=== PATIENT | male | born 1970 | race Two or more races ===

== ENCOUNTER 2018-06-01 03:10 | Emergency (ER) | payer SELFPAY ==
[~2018-06-01] VITALS: Ht 172.7 cm; Wt 83.9 kg
[2018-06-01 03:25] VITALS: BP 161/98
[2018-06-01] MEDS ORDERED: Ketorolac 30mg Inj IV ONE (03:30)
--- NOTE | 2018-06-01 03:32 | Emergency Room Report ---
History of Present Illness General Chief Complaint: Abdominal Pain Source: Patient Present Illness HPI Is a 47-year-old male with no past medical history. He presents with chief complaint of abdominal pain with diarrhea this been ongoing for 2 months. He has weight loss. Said he lost about 7-10 pounds his last week. No nausea no vomiting. Pain is crampy and sharp in nature. Localized to the upper quadrants. No radiation. Diarrhea is watery and loose. On and off for a month. No fever or chills. No vomiting. He drinks about 6-7 beers a day. No other complaint. Never went to a doctor for this. Allergies: Coded Allergies: No Known Allergies (Unverified , 06/01/18) Patient History Past Medical History: none, see triage record, old chart reviewed Past Surgical History: none Pertinent Family History: none Social History: Reports: alcohol use Immunizations: other Reviewed Nursing Documentation: PMH: Agreed; PSxH: Agreed Nursing Documentation-PMH Past Medical History: No Stated History Review of Systems Eye: Denies: eye pain, blurred vision ENT: Denies: ear pain, nose congestion, throat swelling Respiratory: Denies: cough, shortness of breath Cardiovascular: Denies: chest pain, palpitations Gastrointestinal: Reports: abdominal pain, diarrhea; Denies: nausea, vomiting Musculoskeletal: Denies: back pain, joint pain Skin: Denies: rash Neurological: Denies: headache, numbness Endocrine: Denies: increased thirst, increased urine Hematologic/Lymphatic: Denies: easy bruising All Other Systems: negative except mentioned in HPI Physical Exam Vital Signs Date Time Temp Pulse Resp B/P (MAP) Pulse Ox O2 Delivery O2 Flow Rate FiO2 06/01/18 03:22 97.3 101 16 163/99 96 Room Air vitals with high blood pressure Sp02 EP Interpretation: reviewed, normal General Appearance: well appearing, no apparent distress, alert Head: normocephalic, atraumatic Eyes: bilateral eye PERRL, bilateral eye EOMI ENT: hearing grossly normal, normal pharynx Neck: full range of motion, supple, no meningismus Respiratory: chest non-tender, lungs clear, normal breath sounds Cardiovascular #1: regular rate, rhythm, no murmur Gastrointestinal: non tender, no mass, no organomegaly, no bruit, non-distended , abnormal bowel sounds - Hyperactive, other - ascites Musculoskeletal: back normal, gait/station normal, normal range of motion Psychiatric: mood/affect normal Skin: warm/dry Medical Decision Making Diagnostic Impression: Primary Impression: Abdominal pain Qualified Codes: R10.84 - Generalized abdominal pain Additional Impressions: Alcoholic cirrhosis of liver with ascites Diarrhea Qualified Codes: R19.7 - Diarrhea, unspecified ER Course Is with abdominal pain and diarrhea. CT scan showed evidence of liver disease with cirrhosis and ascites. I discussed this with patient with an solar sales specialist. Advised him to stop drinking. He will need follow-up with referral to see GI doctor. No evidence of spontaneous bacterial tinnitus. He does have moderate amount of bacteria in his urine. We'll treat with antibiotics. Lab Results Impression lab showed liver abnormality CT/MRI/US Diagnostic Results CT/MRI/US Diagnostic Results : Imaging Test Ordered: CT abdomen and pelvis Impression read by radiologist: CT ABDOMEN & PELVIS Without Contrast: Moderate abdominal and pelvic ascites. Cirrhosis of the liver. Splenomegaly. No bowel obstruction. No free air. Multiple splenic varices consistent with underlying portal venous hypertension. Mild chronic height loss of T12 and L1. Last Vital Signs Date Time Temp Pulse Resp B/P (MAP) Pulse Ox O2 Delivery O2 Flow Rate FiO2 06/01/18 03:22 97.3 101 16 163/99 96 Room Air Status: improved Disposition: HOME, SELF-CARE Condition: Stable Scripts Diphenoxylate Hcl/Atropine (LOMOTIL TABLET) 1 Each Tablet 1 TAB ORAL BID, #20 TAB 0 Refills Prov: Kenny Tanner MD 06/01/18 Additional Instructions: Stop drinking alcohol. This is damaging your liver. Follow-up with your doctor in 7 days. You will need a referral to see GI doctor. Return if symptom worsen. Kenny Tanner MD Jun 01, 2018 03:32
[2018-06-01 04:00] LABS: EOSINOPHILS % (AUTO) 1.9 % (0.0-3.0); HEMATOCRIT 52.4 % (42.0-52.0); LYMPHOCYTES % (AUTO) 22.1 % (20.0-45.0); MEAN CORPUSCULAR VOLUME 89 FL (80-99); MONOCYTES % (AUTO) 7.3 % (1.0-10.0); NEUTROPHILS % (AUTO) 67.7 % (45.0-75.0); PLATELET COUNT 181 K/UL (150-450); RED BLOOD COUNT 5.86 M/UL (4.70-6.10); RED CELL DISTRIBUTION WIDTH 11.3 % (11.6-14.8); WHITE BLOOD COUNT 6.3 K/UL (4.8-10.8)
[2018-06-01 04:03] LABS: APPEARANCE,URINE CLEAR; BILIRUBIN, URINE 1+ (NEGATIVE); GLUCOSE, URINE (UA) NEGATIVE (NEGATIVE); KETONES,URINE NEGATIVE (NEGATIVE); LEUKOCYTE ESTERASE ,URINE 1+ (NEGATIVE); NITRITE,URINE NEGATIVE (NEGATIVE); PH,URINE 6.5 (4.5-8.0); PROTEIN,URINE 4+ (NEGATIVE); UROBILINOGEN,URINE NORMAL MG/DL (0.0-1.0)
[2018-06-01 04:05] LABS: HEMOGLOBIN 18.9 G/DL (14.2-18.0)
[2018-06-01 04:13] LABS: ANION GAP 7 mmol/L (5-15); BLOOD UREA NITROGEN 8 mg/dL (7-18); CARBON DIOXIDE 25 MMOL/L (21-32); CHLORIDE 105 MMOL/L (98-107); CREATININE 0.7 MG/DL (0.55-1.30); POTASSIUM 4.1 MMOL/L (3.5-5.1); SODIUM 137 MMOL/L (136-145)
[2018-06-01 04:16] LABS: COLOR,URINE YELLOW
[2018-06-01 04:24] LABS: ALANINE AMINOTRANSFERASE 37 U/L (12-78); ALBUMIN 1.5 G/DL (3.4-5.0); ALBUMIN/GLOBULIN RATIO 0.3 (1.0-2.7); ALKALINE PHOSPHATASE 250 U/L (46-116); ASPARTATE AMINO TRANSFERASE 52 U/L (15-37); BILIRUBIN,TOTAL 1.2 MG/DL (0.2-1.0)
[2018-06-01 04:31] LABS: BILIRUBIN,DIRECT 0.2 MG/DL (0.0-0.3)
[2018-06-01] MEDS ORDERED: LOMOTIL TABLET1 EACH ORAL (04:57)
[2018-06-01] MEDS ORDERED: CIPRO500 MG PO (04:59)
[2018-06-01] MEDS ORDERED: cefTRIAXone 1 GM in NS 55 ML IVPB ONE (05:00)
[2018-06-01 05:21] VITALS: BP 155/89
--- NOTE | 2018-06-01 11:29 | Diagnostic Imaging Report ---
Indication: Abdominal pain for 2 weeks Technique: Spiral acquisitions obtained through the abdomen and pelvis. No oral contrast utilized, per emergency room physician request No IV contrast utilized, per referring physician request.. Multiplanar reconstructions were generated. Total dose length product 762.11 mGycm. CTDIvol(s) 14.05 mGy. Dose reduction achieved using automated exposure control Comparison: None Findings: Lack of IV contrast limits assessment of the solid organs. There is suggestion of mild hepatic surface nodularity. The gallbladder is nondistended. No gallstones. There is a small to moderate amount of ascites fluid. There is extensive infiltration of the mesenteric fat. Perigastric varices are noted. The spleen is enlarged, measuring 17 cm long axis dimension. No focal abnormality. No biliary ductal dilatation The pancreas is unremarkable. The adrenals are unremarkable. The kidneys are unremarkable. No renal or ureteral calculi, hydronephrosis, or hydroureter demonstrated. No retroperitoneal mass or adenopathy. Numerous prominent but not frankly enlarged lymph nodes are seen within the mesenteric root. No pelvic mass or adenopathy. The prostate is prominent. There are scattered small colonic diverticula. No evidence of diverticulitis, although evaluation for such is limited given the extensive edema of the adjacent fat. The appendix is probably normal although not definitively visualized. No findings to suggest acute appendicitis are evident. No small bowel distention. No free intraperitoneal gas. Distal esophagus, stomach, duodenum are unremarkable. The included lung bases demonstrate some vague groundglass opacity likely reflecting atelectatic changes. Linear atelectatic changes are seen at the left lung base. The bones demonstrate minimal degenerative spondylosis changes. Slight wedging of the T12 and L1 vertebral bodies is probably developmental rather than acquired. Impression: Evidence of hepatic cirrhosis Evidence of portal hypertension, with ascites, varices, and splenomegaly Colonic diverticulosis. No evidence of diverticulitis Basilar pulmonary parenchymal groundglass opacities, likely on the basis of atelectatic changes. There is also linear atelectasis at the left lung base Slight degenerative spondylosis This agrees with the preliminary interpretation provided overnight by [facility]. The CT scanner at [facility] is accredited by the [employer] and the scans are performed using protocols designed to limit radiation exposure to as low as reasonably achievable to attain images of sufficient resolution adequate for diagnostic evaluation.
== END 2018-06-01 05:21 | disposition home or self-care (01) ==
LOC: EMR 03:34
DX: R10.84 Generalized abdominal pain (principal); K70.31 Alcoholic cirrhosis of liver with ascites; R19.7 Diarrhea, unspecified; R16.1 Splenomegaly, not elsewhere classified; K76.6 Portal hypertension
CPT/HCPCS: 36415; 74176; 80053; 81003; 82248; 83690; 85025; 85610; 85730; 87086; 96361; 96365; 96375; 99284; J0696; J1885